=== PATIENT | female | born 1990 | race African-American/Black ===

== ENCOUNTER 2020-07-19 11:55 | Observation (INO) ==
[2020-07-19] MEDS ORDERED: HYDROmorphone 2 MG/1 ML VIAL IV PRN (13:45)
[2020-07-19] MEDS ORDERED: ONDANSETRON 4 MG/2 ML VIAL IV PRN (13:45)
[2020-07-19] MEDS ORDERED: BISACODYL 5 MG TABLET PO PRN (13:45)
[2020-07-19] MEDS ORDERED: ACETAMINOPHEN 325 MG TABLET PO PRN (13:45)
[2020-07-19] MEDS ORDERED: KETOROLAC 15 MG/1 ML VIAL IV PRN (13:45)
[2020-07-19 13:54] LABS: Basophils % 0.3 % (0.0-0.8); Eosinophils # 0.2 10*3/uL (0.0-0.87); Eosinophils % 1.3 % (0.00-10.9); Hematocrit 37.4 VOL% (35.7-47.0); Immature Granulocytes % 0.5 %; Immature Granulocytes Absolute 0.06 #; Lymphocytes # 1.9 10*3/uL (1.4-4.0); Lymphocytes % 16.6 % (21.3-54.2); Mean Corpuscular HGB Conc 32.1 GM/DL (32-36); Mean Corpuscular Volume 73.6 FL (87-102); Mean Platelet Volume 9.8 FL (9.6-12.0); Monocytes % 6.2 % (1.7-12.7); Neutrophils % 75.1 % (38.7-73.9); Platelet Count 354 T/CUMM (130-400); Red Blood Count 5.08 MC/CUMM (3.8-5.5); Red Cell Distribution Width 15.2 % (9.3-17.3); White Blood Count 11.7 T/CUMM (4-12)
[2020-07-19 14:11] LABS: Calcium 8.6 MG/DL (8.5-10.1); Osmolality,Calculated 275.4 MOS/KG (273-304); Potassium 3.9 MMOL/L (3.5-5.1)
[2020-07-19] MEDS ORDERED: ALBUTEROL/IPRATROPIUM 3 ML NEB RESP TX PRN (15:00)
[2020-07-19] MEDS ORDERED: VANCOMYCIN INJ 1,250 MG in SODIUM CHLORIDE 0.9% 250 ML IV ONE (15:00)
[2020-07-19] MEDS ORDERED: LIDOCAINE 1%/EPI INJ 20 ML VIAL ONE (15:11)
[2020-07-19] MEDS ORDERED: BUPIVACAINE MPF 0.25% 30 ML VIAL ONE (15:11)
[2020-07-19] MEDS ORDERED: SUCCINYLCHOLINE 200 MG/10 ML VIAL ONE (19:45)
[2020-07-19] MEDS ORDERED: LIDOCAINE 2% 5 ML VIAL ONE (19:45)
[2020-07-19] MEDS ORDERED: propofoL 200 MG/20 ML VIAL IV ONE ×2 (19:45→20:43)
[2020-07-19] MEDS ORDERED: fentaNYL 100 MCG/2 ML VIAL ONE (19:45)
[2020-07-19] MEDS ORDERED: ONDANSETRON 4 MG/2 ML VIAL ONE (19:45)
[2020-07-19] MEDS ORDERED: MIDAZOLAM 2 MG/2 ML VIAL ONE (19:45)
[2020-07-19] MEDS ORDERED: LACTATED RINGERS 1,000 ML IV ONE (20:39)
[2020-07-19] MEDS ORDERED: DEXAMETHASONE 4 MG/1 ML VIAL ONE (20:42)
[2020-07-19] MEDS ORDERED: SEVOFLURANE 1 UNIT/15 MINUTE INH ONE (20:45)
[2020-07-19] MEDS: LACTATED RINGERS 1,000 ML IV SCH ×2 (22:30→22:32)
[2020-07-19] MEDS: PIPERACILLIN/TAZOBACTAM 3,375 MG in SODIUM CHLORIDE 0.9% 100 ML IV SCH (22:38)
[2020-07-20] MEDS: PIPERACILLIN/TAZOBACTAM 3,375 MG in SODIUM CHLORIDE 0.9% 100 ML IV SCH ×2 (01:51→11:03)
[2020-07-20] MEDS ORDERED: VANCOMYCIN INJ 1,500 MG in SODIUM CHLORIDE 0.9% 500 ML IV SCH (04:00)
[2020-07-20] MEDS: LACTATED RINGERS 1,000 ML IV SCH ×3 (04:46→14:28)
[2020-07-20] MEDS ORDERED: PANTOPRAZOLE 40 MG TABLET PO SCH (09:00)
[2020-07-20 11:55] VITALS: BP 135/73
== END 2020-07-20 14:31 | disposition home or self-care (01) ==
LOC: N.EDINP 11:55 → N.ED 11:55 → N.5E 16:44
PROVIDERS: ADMIT Student in an Organized Health Care Education/Training Program; ATTEND Student in an Organized Health Care Education/Training Program